=== PATIENT | female | born 1975 | race Caucasian/White ===

== ENCOUNTER 2022-06-14 15:27 | Inpatient (IN) | payer MEDICAID ==
[~2022-06-14] VITALS: Ht 170.2 cm; Wt 151.8 kg
[2022-06-14 17:45] VITALS: BP 128/69; PULSE 55; TEMP 98.2
[2022-06-14] MEDS ORDERED: ZYLOPRIM 300MG300 MG PO (18:07)
[2022-06-14] MEDS ORDERED: NORVASC 10MG10 MG PO (18:08)
[2022-06-14] MEDS ORDERED: LIPITOR 40MG TA40 MG PO (18:09)
[2022-06-14] MEDS ORDERED: SUBOXONE 8 MG-21 FIL SL (18:10)
[2022-06-14] MEDS ORDERED: ALLEGRA ALLERG180 MG PO (18:11)
[2022-06-14] MEDS ORDERED: MIRALAX PA17 GM/Dose PO (18:12)
[2022-06-14] MEDS ORDERED: MOTRIN 800800 MG/TAB PO (18:13)
[2022-06-14] MEDS ORDERED: SYNTHROID0.2 MG/TAB PO (18:13)
[2022-06-14] MEDS ORDERED: BENICAR 20MG TA20 MG PO (18:14)
--- NOTE | 2022-06-14 18:20 | NUR ---
Patient to room 317 from the ER. A&Ox4. VSS. IV CDI. Denies pain and discomfort. Nurse oriented the patient to location, room and call light. Patient independent in the room. No further needs expressed. Call light within reach
[2022-06-14 19:52] LABS: CHOLESTEROL RISK RATIO 4.5
[2022-06-14 19:53] LABS: INR 1.1 (0.8-3.0); PROTHROMBIN TIME 12.7 SECONDS (9.7-12.8)
[2022-06-14 19:55] LABS: PARTIAL THROMBOPLASTIN TIME 30.7 SECONDS (26.0-37.0)
[2022-06-14 20:27] VITALS: BP 107/48; PULSE 54; TEMP 97.9
[2022-06-14 23:21] VITALS: BP 114/51; PULSE 61; TEMP 98.1
--- NOTE | 2022-06-14 23:52 | NUR ---
Patient assessed around 2029. Patient requested new IV. coffee supervisor started new IV to right forearm. Took out Left AC as requested. Started on Heparin drip per orders. Denied pain and discomfort at time of assessment. Patient anxious about having heart problems and testing. This nurse explained plan for tomorrow and all questions answered. Encouraged to call if she had any other questions, needs, or concerns, and voiced understanding. Patient in bed with call light within reach.
[2022-06-15] VITALS (17 sets, daily range): BP systolic 82–125; BP diastolic 42–70; PULSE 56–93; TEMP 97.8–98.6
--- NOTE | 2022-06-15 05:41 | NUR ---
Continues on Heparin drip per order. NPO since midnight. Voices no questions, needs, or concerns at this time. In bed with call light within reach.
[2022-06-15 09:53] LABS: BASO # 0.1 K/mm3 (0.0-0.2); BASO % 0.4 % (0.0-2.0); EOS # 0.3 K/mm3 (0.0-0.7); EOS % 2.8 % (0.0-4.0); GRAN # 6.5 K/mm3 (1.4-6.5); GRAN % 56.2 % (42.2-75.2); HEMOGLOBIN 11.3 g/dl (12.5-16.0); LYMPH # 3.9 K/mm3 (1.2-3.4); LYMPH % 33.8 % (20.0-51.0); MEAN CELL VOLUME 96 fl (80.0-100.0); MEAN CORPUSCULAR HEMOGLOBIN 31 pg (27-31); MEAN CORPUSCULAR HGB CONC 32 g/dl (33.0-37.0); MEAN PLATELET VOLUME 10.5 fl (7.4-10.4); MONO # 0.8 K/mm3 (0.1-0.6); MONO % 6.5 % (1.7-9.3); PLATELET COUNT 318 K/mm3 (130-400); RED BLOOD COUNT 3.64 M/mm3 (4.10-5.30); REDCELL DISTRIBUTION WIDTH-CV 14.6 % (11.5-14.5)
[2022-06-15 10:04] LABS: CALCIUM 10.6 mg/dL (8.4-10.2); CREATININE, serum 0.95 mg/dL (0.57-1.11); POTASSIUM 4.4 mmol/L (3.5-4.5)
--- NOTE | 2022-06-15 10:15 | NUR ---
Patient was admitted to the Medical unit from the ER on 06-14-2022. Nuclear Powerplant Mechanic met with patient in her room to conduct care managment intake. Patient verrified that she lives with her son, Arron P:[phone] on [facility]. Patient verrified that she has [employer] for insurance and currently does not use O2 or MDE at this time. Patient reports that she does not have AD at this time however, requests AD paperwork to complete while admitted. Patient reports that she intends on discharging home to [facility] once medically stable. MAIN attempted to contact Arron on his phone number provided by Patient. Raron did not answer, MAIN was unable to leave a voice message.
--- NOTE | 2022-06-15 12:36 | NUR ---
SEE MERGE FOR PROCEDURE, EQUIPMENT, MEDICATIONS, VITAL SIGNS, AND OTHER PROCEDURAL RELATED INFORMATION
--- NOTE | 2022-06-15 12:39 | NUR ---
Initial visit: Pt was resting and content. Pt expressed her concerns with an upcoming procedure and customer retention representative asked if she would want prayer. Pt said yes and customer retention representative was able to pray with pt. Pt appreciated the visit. Piercing Artist will follow up as needed.
--- NOTE | 2022-06-15 18:57 | NUR ---
PATIENT ALERT AND ORIENTED X4. IV TO RIGHT FOREARM. 1/2 NS RUNNING AT 75/HR. PATIENT HAD HEART CATH THIS AFTERNOON. RIGHT RADIAL BAND. 3CC HAS BEEN TAKEN OFF SO FAR. POST OP VITALS GOOD.
--- NOTE | 2022-06-15 22:54 | NUR ---
Patient assessed around 1944. Patient had 11 mls of air in TR band. Slowly pulled air out, and taken off around 2029. Flat bruising to site. Patient had 2 bandaids proximal to site, new bandaid placed over heart cath site, [address] at this time. Complained of generalized pain to area. Called [facility], new order for Acetaminophen received and given per orders. Voices no further questions, needs, or concerns at this time. In bed with call light within reach.
[2022-06-16 04:14] VITALS: BP 97/48; PULSE 51; TEMP 98.1
--- NOTE | 2022-06-16 05:56 | NUR ---
Patient has denied pain and discomfort this shift. Voices no questions, needs, or concerns at this time. In bed with call light within reach.
[2022-06-16 06:41] LABS: HEMOGLOBIN 10.5 g/dl (12.5-16.0); MEAN CELL VOLUME 95 fl (80.0-100.0); MEAN CORPUSCULAR HEMOGLOBIN 31 pg (27-31); MEAN CORPUSCULAR HGB CONC 33 g/dl (33.0-37.0); MEAN PLATELET VOLUME 10.6 fl (7.4-10.4); PLATELET COUNT 252 K/mm3 (130-400); RED BLOOD COUNT 3.39 M/mm3 (4.10-5.30); REDCELL DISTRIBUTION WIDTH-CV 14.6 % (11.5-14.5)
[2022-06-16 06:45] LABS: HEMATOCRIT 32.2 % (37.0-47.0)
[2022-06-16 07:25] VITALS: BP 101/54; PULSE 51; TEMP 97.9
[2022-06-16] MEDS ORDERED: PLAVIX 75MG TAB75 MG PO (09:44)
[2022-06-16] MEDS ORDERED: LIPITOR 80MG80 MG PO (09:45)
[2022-06-16] MEDS ORDERED: ASPIRIN E.C. 8181 MG PO (09:45)
[2022-06-16] MEDS ORDERED: NITROSTAT0.4 MG/TAB SL (09:46)
--- NOTE | 2022-06-16 10:57 | NUR ---
Initial visit; Patient thanked Barber Apprentice for looking in on her though said she had no spiritual needs at this time. Barber Apprentice offered God's Blessings.
[2022-06-16 12:00] VITALS: PULSE 55
== END 2022-06-16 12:47 | disposition home or self-care (01) | DRG 287 ==
LOC: MEDICAL 15:27
PROVIDERS: ADMIT Internal Medicine
PROC: 4A023N7 Measurement of Cardiac Sampling and Pressure, Left Heart, Percutaneous Approach (ICD-10-PCS; principal; 2022-06-15)
PROC: B2111ZZ Fluoroscopy of Multiple Coronary Arteries using Low Osmolar Contrast (ICD-10-PCS; 2022-06-15)
DX: I24.9 Acute ischemic heart disease, unspecified (principal); Z68.43 Body mass index [BMI] 50.0-59.9, adult; I25.110 Atherosclerotic heart disease of native coronary artery with unstable angina pectoris; I10 Essential (primary) hypertension; E78.5 Hyperlipidemia, unspecified; E66.01 Morbid (severe) obesity due to excess calories; E03.9 Hypothyroidism, unspecified; R73.03 Prediabetes; F11.10 Opioid abuse, uncomplicated; I95.9 Hypotension, unspecified; Z87.891 Personal history of nicotine dependence; Z88.5 Allergy status to narcotic agent; Z88.0 Allergy status to penicillin; Z88.8 Allergy status to other drugs, medicaments and biological substances; Z79.890 Hormone replacement therapy
CPT/HCPCS: C1769; G0378; G0379; J1644; J2250; J3010; Q9967